=== PATIENT | female | born 1970 | race Caucasian/White ===

== ENCOUNTER 2021-03-07 10:32 | Emergency (ER) | payer MEDICAID ==
[~2021-03-07] VITALS: Ht 167.6 cm; Wt 122.0 kg
[~2021-03-07 10:32] MED LIST: NAPR220T66 PO
[2021-03-07 10:37] VITALS: BP 140/65
[2021-03-07] MEDS ORDERED: IBUP-2030 MT (11:46)
== END 2021-03-07 12:10 | disposition home or self-care (01) ==
LOC: ER 10:32
DX: S80.01XA Contusion of right knee, initial encounter (principal); Z98.890 Other specified postprocedural states; Z88.6 Allergy status to analgesic agent; W01.0XXA Fall on same level from slipping, tripping and stumbling without subsequent striking against object, initial encounter; Y93.89 Activity, other specified; Y92.89 Other specified places as the place of occurrence of the external cause; Y99.8 Other external cause status
CPT/HCPCS: 73562; 73610; 73630; 99284

== ENCOUNTER 2024-06-18 15:41 | Emergency (ER) | payer MEDICAID ==
[~2024-06-18] VITALS: Ht 165.1 cm; Wt 115.7 kg
[~2024-06-18 15:41] MED LIST changes: +IBUP-2030 MT
[2024-06-18 15:46] VITALS: O2SAT 98
[2024-06-18] MEDS ORDERED: IBUP-2029 MT (20:14)
[2024-06-18] MEDS: IBUPROFEN 600MG TABLET PO ONE (20:29)
[2024-06-18 21:10] VITALS: BP 121/69; PULSE 69; RESP 18; TEMP 36.8; O2SAT 99
== END 2024-06-18 21:09 | disposition home or self-care (01) ==
LOC: ER 15:41
DX: S50.01XA Contusion of right elbow, initial encounter (principal); Z90.710 Acquired absence of both cervix and uterus; Z79.899 Other long term (current) drug therapy; Z98.890 Other specified postprocedural states; Z88.5 Allergy status to narcotic agent; W01.0XXA Fall on same level from slipping, tripping and stumbling without subsequent striking against object, initial encounter; Y93.01 Activity, walking, marching and hiking; Y92.89 Other specified places as the place of occurrence of the external cause; Y99.8 Other external cause status
CPT/HCPCS: 29105; 73080; 73090; 99284